=== PATIENT | male | born 1960 | race Caucasian/White ===

== ENCOUNTER 2017-08-31 15:38 | Emergency (ER) | payer BC ==
[~2017-08-31] VITALS: Ht 190.5 cm; Wt 74.7 kg
[2017-08-31] MEDS ORDERED: ONDANSETRON 2MG/ML, 2ML IVPush ONE (16:00)
[2017-08-31] MEDS ORDERED: SODIUM CHLORIDE FLUSH 10ML SYR IVF ONE (16:00)
[2017-08-31] MEDS ORDERED: SODIUM CHLORIDE 0.9% 1,000ML IV ONE (16:00)
[2017-08-31] MEDS ORDERED: ONDANSETRON 2MG/ML, 2ML ONE (16:07)
[2017-08-31 16:08] LABS: HEMATOCRIT 48.4 % (39.2-51.8); HEMOGLOBIN 16.4 g/dL (13.7-18.0); WHITE BLOOD COUNT 15.3 x10^3/uL (3.4-10)
[2017-08-31 16:16] LABS: BLOOD UREA NITROGEN 17 mg/dL (7-18)
[2017-08-31 16:44] LABS: PATH.CAST-FLAG NOT PRESENT; SPERM-FLAG NOT PRESENT; SRC-FLAG NOT PRESENT; XTAL-FLAG NOT PRESENT; YLC-FLAG NOT PRESENT
[2017-08-31] MEDS ORDERED: CEFTRIAXONE PMX 1GM/50ML 50 ML ONE (17:37)
[2017-08-31] MEDS ORDERED: CEFTRIAXONE PMX 1GM/50ML 50 ML IV ONE (18:00)
[2017-08-31 18:08] VITALS: BP 113/65
== END 2017-08-31 18:10 | disposition home or self-care (01) ==
LOC: ED 16:43
DX: N30.00 Acute cystitis without hematuria (principal)
CPT/HCPCS: 36415; 71020; 80048; 81001; 82040; 83605; 85025; 87077; 87086; 87186; 96361; 96365; 99285; J0696; J7030

== ENCOUNTER → 2017-09-15 | Outpatient (CLI) | payer OTHER ==
[2017-09-15 16:02] LABS: HEMATOCRIT 41.1 % (39.2-51.8); WHITE BLOOD COUNT 7.2 x10^3/uL (3.4-10)
[2017-09-15 16:14] LABS: ASPARTATE AMINO TRANSFERASE 16 U/L (15-37); BLOOD UREA NITROGEN 15 mg/dL (7-18)
== END | disposition home or self-care (01) ==
LOC: CFH 15:16
PROVIDERS: ATTEND Nurse Practitioner Family
DX: R39.11 Hesitancy of micturition (principal)
CPT/HCPCS: 36415; 74000; 80053; 84153; 85025; G0103

== ENCOUNTER → 2021-06-03 | Outpatient (CLI) | payer OTHER ==
[2021-06-03 08:42] LABS: RED BLOOD COUNT 4.98 x10^6/uL (4.38-5.82)
[2021-06-03 08:43] LABS: BASOPHILS % (AUTO) 1 % (0-1); EOSINOPHILS % (AUTO) 5 % (1-7); LYMPHOCYTES % (AUTO) 41 % (22-44); MEAN CORPUSCULAR HEMOGLOBIN 30.2 pg (27.5-34.5); MEAN CORPUSCULAR HGB CONC 33.8 g/dL (33.2-36.2); MEAN PLATELET VOLUME 8.4 fL (7.4-10.4); MONOCYTES % (AUTO) 9 % (2-9); NEUTROPHILS % (AUTO) 45 % (42-75); PLATELET COUNT 159 x10^3/uL (130-400); RED CELL DISTRIBUTION WIDTH 13.7 % (9.4-14.8)
[2021-06-03 08:52] LABS: ALBUMIN 3.5 g/dL (3.4-5.0); ANION GAP 4 mmol/L (5-15); CALCIUM 8.6 mg/dL (8.5-10.1); CHLORIDE 108 mmol/L (98-107)
[2021-06-03 09:17] LABS: ALANINE AMINOTRANSFERASE 38 U/L (12-78); ALKALINE PHOSPHATASE 66 U/L (45-117); BILIRUBIN,TOTAL 0.7 mg/dL (0.2-1.0); CHOL/HDL RATIO 3.8; CHOLESTEROL, TOTAL 155 mg/dL (140-239); CREATININE 0.89 mg/dL (0.7-1.3); HDL CHOL % 26 % (26-37); HDL CHOLESTEROL (DIRECT) 41 mg/dL (40-60); LDL CHOLESTEROL,CALCULATED 101 mg/dL (54-169); LDL/HDL RATIO 2.5 (0.5-3.0); TOTAL PROTEIN 6.3 g/dL (6.4-8.2); TRIGLYCERIDES 63 mg/dL (50-200); VLDL CHOLESTEROL 13 mg/dL (0-25)
[2021-06-03 09:21] LABS: FOLATE LEVEL > 20.0 ng/mL (3.1-17.5)
== END | disposition home or self-care (01) ==
LOC: LAB 08:26
PROVIDERS: ATTEND Internal Medicine
DX: Z12.5 Encounter for screening for malignant neoplasm of prostate (principal); Z00.00 Encounter for general adult medical examination without abnormal findings; R53.83 Other fatigue
CPT/HCPCS: 36415; 80053; 80061; 82306; 82607; 82728; 82746; 84153; 84403; 84443; 85025; G0103

== ENCOUNTER 2021-06-26 07:50 | Emergency (ER) | payer OTHER ==
[~2021-06-26] VITALS: Ht 190.5 cm; Wt 76.0 kg
[2021-06-26 07:56] VITALS: BP 123/67
--- NOTE | 2021-06-26 09:24 | NUR ---
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 PT LOCATED AT THIS TIME, NOW TO XRAY.
--- NOTE | 2021-06-26 09:32 | NUR ---
PT REFUSING REPEAT VS. PT A&O, RESPS EVEN AND UNLABORED, NADN. AWAITING XRAY RESULTS AND DISPO.
--- NOTE | 2021-06-26 09:54 | NUR ---
all results back, chart up for recheck. awaiting provider and dispo.
--- NOTE | 2021-06-26 10:15 | NUR ---
DC ORDERS RECEIVED, PT GIVEN DC INSTRUCTIONS INCLUDING FOLLOW UP INSTRUCTIONS FOR WORKMANS COMP. PT REFUSES KNEE IMMOBILIZER AND CRUTCHES. ALL QUESTIONS ANSWERED.
== END 2021-06-26 10:15 | disposition home or self-care (01) ==
LOC: ED 10:08
DX: M25.561 Pain in right knee (principal); M25.461 Effusion, right knee
CPT/HCPCS: 99283